=== PATIENT | male | born 1945 | race Two or more races ===

== ENCOUNTER 2016-10-10 08:58 | Day surgery (SDC) | payer OTHER ==
[~2016-10-10] VITALS: Ht 167.6 cm; Wt 80.9 kg
[2016-10-10] VITALS (7 sets, daily range): BP systolic 113–160; BP diastolic 69–95; PULSE 55–64; RESP 16–18; TEMP 97.5; O2SAT 93–97
[2016-10-10 10:05] LABS: AUTOMATED NEUTROPHIL # 2.9 TH/MM3 (1.8-7.7); BASOPHIL % 0.1 % (0.0-2.0); EOSINOPHIL # 0.1 TH/MM3 (0-0.4); EOSINOPHIL % 1.6 % (0.0-4.0); HEMATOCRIT 29.7 % (39.0-51.0); HEMO FLAGS DIFF FINAL; LYMPH % 36.8 % (9.0-44.0); LYMPHOCYTE # 2.2 TH/MM3 (1.0-4.8); MEAN CELL VOLUME 94.1 FL (80.0-100.0); MEAN CORPUSCULAR HEMOGLOBIN 31.1 PG (27.0-34.0); MEAN CORPUSCULAR HGB CONC 33.1 % (32.0-36.0); MONO % 11.9 % (0.0-8.0); NEUT % 49.6 % (16.0-70.0); PLATELET COUNT 258 TH/MM3 (150-450); RED BLOOD COUNT 3.16 MIL/MM3 (4.50-5.90); WHITE BLOOD COUNT 5.9 TH/MM3 (4.0-11.0)
[2016-10-10] MEDS ORDERED: FOSA70TA PO (10:14)
[2016-10-10] MEDS ORDERED: SODIUM CHLOR 0.9% 1000 ML IV SCH (11:00)
[2016-10-10] MEDS ORDERED: LIDOCAINE HCL 1% 20 ML VIAL ONE (11:19)
[2016-10-10] MEDS ORDERED: MIDAZOLAM HCL 2 MG/2 ML VIAL ONE (11:31)
[2016-10-10] MEDS ORDERED: fentaNYL CITRATE 250 MCG/5 ML AMP ONE (11:32)
--- NOTE | 2016-10-10 12:09 | PD.RAD ---
Post CT Procedure Prog Note Pre Procedure Diagnosis: (1) Anemia Post Procedure Diagnosis: (1) Anemia Procedure Date: Oct 10, 2016 Supervising Radiologist: Forest Lyon Anesthesia: Conscious Sedation Plan of Activity Patient to Unit: [facility] Patient Condition: Good Additional Comments: left iliac bm bx See PACS Report for procedural detail/treatment Forest Lyon MD Oct 10, 2016 12:09
--- NOTE | 2016-10-10 12:48 | RADRPT ---
EXAM DATE/TIME: 10/10/2016 11:46 [facility] COMPARISON: No previous studies available for comparison. INDICATIONS : Anemia. SEDATION TIME: 25 minutes BIOPSY SITE: Left MEDICATION(S): 1.) 2 mg midazolam (Versed) IV 2.) 200 mcg fentanyl (Sublimaze) IV DEVICE(S): 1.) 11 gauge Bone marrow biopsy needle MEDICAL HISTORY : Anemia SURGICAL HISTORY : None. ENCOUNTER: Initial ACUITY: 1 day PAIN SCORE: 0/10 LOCATION: Left pelvis A total of one core specimen(s) were obtained and sent to the laboratory for pathologic evaluation. PROCEDURE: 1. CT guided bone marrow biopsy. 2. Conscious sedation with continuous EKG and oximetry monitoring. 3. EKG and oximetry remained stable throughout the procedure. Prior to the procedure informed consent was obtained. Any appropriate prior imaging studies were rev iewed. Using automated exposure control and adjustment of the mA and/or kV according to patient size , radiation dose was kept as low as reasonably achievable to obtain optimal diagnostic quality images . DICOM format image data is available electronically for review and comparison. The site was prepped in a sterile fashion. Full sterile technique was used, including cap, mask, jorge rile gloves and gown and a large sterile sheet. Hand hygiene and 2% chlorhexidine and/or betadine/al cohol prep was utilized per protocol for cutaneous antisepsis. The skin and subcutaneous tissues wer e infiltrated with local anesthetic solution. With CT guidance the previously identified target was localized. Biopsy was performed using the presc ribed needle as above. Following biopsy marrow aspiration was performed with repeat puncture. Adequa te hemostasis was obtained with compression at the puncture site. Follow-up CT scan reveals no hemorrhage. Conscious sedation was performed with the prescribed dosages and duration as above in the presence of an independent trained radiology nurse to assist in the monitoring of the patient. EKG and oximetry remained stable throughout the procedure. The patient tolerated the procedure well and there were no complications. The patient was sent to Radiology Outpatient Unit in stable condition. CONCLUSION: 1. Uncomplicated CT guided bone marrow aspirate. 2. Uncomplicated CT guided bone marrow biopsy. Forest Lyon MD on October 10, 2016 at 12:46 Board Certified Radiologist. This report was verified electronically.
[2016-10-10 13:01] LABS: BONE MARROW PROCESSING COMPLETE; IRON STAIN DONE; JENNER GIEMSA STAIN DONE
[2016-10-10] MEDS ORDERED: ONDANSETRON HCL 4 MG/2 ML VIAL ONE (14:30)
== END 2016-10-10 15:30 | disposition home or self-care (01) ==
LOC: HRAD 08:58 → HRIP 08:59 → HRAD 15:30
PROVIDERS: ATTEND Internal Medicine
DX: D64.9 Anemia, unspecified (principal); D47.2 Monoclonal gammopathy; C90.00 Multiple myeloma not having achieved remission; M85.80 Other specified disorders of bone density and structure, unspecified site
CPT/HCPCS: 38221; 77012; 85025; 85097; 88184; 88185; 88237; 88264; 88280; 88305; 88311; 88313; 99152; 99153; C1830; G0364; J2250; J2405; J3010; J7030; 88368; 88377

== ENCOUNTER 2016-10-25 07:46 | Day surgery (SDC) | payer OTHER ==
[~2016-10-25] VITALS: Ht 167.6 cm; Wt 80.0 kg
[~2016-10-25 07:46] MED LIST: FOSA70TA PO
[2016-10-25 08:01] VITALS: BP 123/80; PULSE 68; RESP 20; TEMP 97.9; O2SAT 97
[2016-10-25 08:28] LABS: AUTOMATED NEUTROPHIL # 2.5 TH/MM3 (1.8-7.7); BASOPHIL % 0.2 % (0.0-2.0); EOSINOPHIL # 0.1 TH/MM3 (0-0.4); EOSINOPHIL % 1.6 % (0.0-4.0); HEMATOCRIT 29.5 % (39.0-51.0); HEMO FLAGS DIFF FINAL; LYMPH % 43.1 % (9.0-44.0); LYMPHOCYTE # 2.4 TH/MM3 (1.0-4.8); MEAN CELL VOLUME 93.6 FL (80.0-100.0); MEAN CORPUSCULAR HEMOGLOBIN 32.1 PG (27.0-34.0); MEAN CORPUSCULAR HGB CONC 34.3 % (32.0-36.0); MONO % 10.4 % (0.0-8.0); NEUT % 44.7 % (16.0-70.0); PLATELET COUNT 297 TH/MM3 (150-450); RED BLOOD COUNT 3.15 MIL/MM3 (4.50-5.90); RED CELL DISTRIBUTION WIDTH 16.6 % (11.6-17.2); WHITE BLOOD COUNT 5.6 TH/MM3 (4.0-11.0)
[2016-10-25] MEDS ORDERED: ceFAZolin 2 GM PREMIX 50 ML - implanted port/tunneled catheter insertion IV SCH (08:30)
[2016-10-25] MEDS ORDERED: POVIDONE IODINE 5% (ANTISEPSIS KIT) 4 APPLICATIONS EACH NARE SCH (08:30)
[2016-10-25] MEDS ORDERED: VANCOMYCIN 1000 MG/NS 250 ML - implanted port/tunneled catheter IV SCH ×2 (08:30)
[2016-10-25] MEDS ORDERED: SODIUM CHLORIDE 0.9% 1000 ML IV SCH (08:30)
[2016-10-25] MEDS ORDERED: CHLORHEXIDINE GLUCONATE 2 % 1 PACK (2 CLOTHS) TOPICAL SCH (08:30)
[2016-10-25 08:37] LABS: APTT (PATIENT) 27.1 SEC (24.3-30.1); INTERNATIONAL NORMALIZED RATIO 1.1 RATIO; PROTHROMBIN TIME - PATIENT 12.1 SEC (9.8-11.6)
[2016-10-25] MEDS ORDERED: MIDAZOLAM HCL 2 MG/2 ML VIAL ONE (09:23)
[2016-10-25] MEDS ORDERED: LIDOCAINE 2%/EPINEPHrine 1:100,000 20ML MDV ONE (09:29)
[2016-10-25 11:00] VITALS: BP 129/71; PULSE 81; RESP 16; TEMP 96; O2SAT 92
[2016-10-25 11:15] VITALS: BP 124/69; PULSE 73; RESP 17; O2SAT 94
--- NOTE | 2016-10-25 11:21 | PD.RAD ---
Post Procedure Progress Note Pre Procedure Diagnosis: (1) Multiple myeloma Post Procedure Diagnosis: (1) Multiple myeloma Procedure Date: Oct 25, 2016 Supervising Radiologist: Vikash Flores Proceduralist/Assist: Thanh Colugna RT(R) Estimated blood loss: 10ml Anesthesia: Local, Conscious Sedation Plan of Activity Patient to Unit: [facility] Patient Condition: Good See PACS Report for procedural detail/treatment Central Venous Access Device Procedure 1 Right Internal Jugular Infusaport Placement single lumen Yi: 8 Vikash Flores MD Oct 25, 2016 11:21
[2016-10-25] MEDS ORDERED: SODIUM CHLORIDE 0.9% FLUSH 10 ML FLUSH IVF PRN (11:30)
[2016-10-25 11:45] VITALS: BP 112/72; PULSE 74; RESP 18; O2SAT 95
[2016-10-25 12:15] VITALS: BP 127/74; PULSE 72; RESP 18; O2SAT 97
--- NOTE | 2016-10-25 14:36 | RADRPT ---
EXAM DATE/TIME: 10/25/2016 09:01 [facility] COMPARISON: No previous studies available for comparison. INDICATIONS : Patient with multiple myeloma. Chemotherapy needed. MEDICAL HISTORY : 1. Anemia 2. multiple myelomia 3. osteoarthritis SURGICAL HISTORY : 1. bone marrow bx ENCOUNTER: Initial ACUITY: 2 months PAIN SCORE: 0/10 FLUORO TIME: 0.4 minutes IMAGE SERIES: 1 SEDATION TIME: 30 minutes ACCESS: Right internal jugular vein SEDATION: 1.) 1.5 mg midazolam (Versed) IV 2.) 75 mcg fentanyl (Sublimaze) IV Prophylactic antibiotics were administered with appropriate pre-procedure timing. Vancomycin within 2 hours of procedure, Ancef (or alternative) within 1 hour of procedure. DEVICE: 1. 8 Russian single lumen Smart port PROCEDURE : 1. Continuous pulse oximetry and EKG monitoring. 2. Intravenous conscious sedation. 3. Ultrasound guidance for venous access. 4. Fluoroscopic guided implantable central venous port placement. The patient was placed supine. The neck was prepped in sterile fashion. Full sterile technique was u sed, including cap, mask, sterile gloves and gown, and a large sterile sheet. Hand hygiene and 2% ch lorhexidine Betadine was utilized per protocol for cutaneous antisepsis with appropriate dry time for site. Sterile gel and sterile probe cover were utilized for ultrasound guidance. The skin and sub cutaneous tissues were infiltrated with local anesthetic solution. Under direct ultrasound guidance, central venous access was accomplished in the targeted vessel. The ultrasound images depicting access guidance were stored and saved to PACS for permanent record. A s ubcutaneous pocket was created using blunt dissection. The port was introduced to the pocket. The c atheter tubing was fed through a subcutaneous tunnel to the venotomy site. The catheter tubing was c ut to a suitable length and then was introduced through a valved Peel-Away sheath and positioned with catheter tubing tip at the cavo-atrial junction level. The pocket incision was closed with subcutic ular Vicryl suture. Steri-Strips were applied. The port was flushed and locked with heparin solutio n per protocol. Sterile dressing was applied to the site. The patient tolerated the procedure well. Conscious sedation was performed with the prescribed dosages and duration as above in the presence of an independent trained radiology nurse to assist in the monitoring of the patient. EKG and oximetry remained stable throughout the procedure. The patient tolerated the procedure well and there were no complications. The patient was sent to post anesthesia recovery in stable condition. CONCLUSION: Uncomplicated ultrasound and fluoroscopic guided implanted central venous port catheter placement as described in detail above. An 8 Russian Power port was placed. Vikash Flores MD on October 25, 2016 at 14:35 Board Certified Radiologist. This report was verified electronically.
== END 2016-10-25 13:10 | disposition home or self-care (01) ==
LOC: HROP 07:46 → HRIP 07:49 → HROP 13:10
PROVIDERS: ATTEND Internal Medicine
DX: C90.00 Multiple myeloma not having achieved remission (principal); D64.9 Anemia, unspecified; M19.90 Unspecified osteoarthritis, unspecified site
CPT/HCPCS: 36561; 76937; 77001; 85025; 85610; 85730; 99152; 99153; C1788; J0690; J1642; J2250; J3010; J3370; J7030; J7050

== ENCOUNTER 2017-03-14 10:09 | Day surgery (SDC) | payer OTHER ==
[2017-03-14] VITALS (7 sets, daily range): BP systolic 91–118; BP diastolic 52–67; PULSE 52–70; RESP 18–20; TEMP 97.5–98; O2SAT 92–99
[~2017-03-14] VITALS: Ht 170.2 cm; Wt 72.3 kg
[2017-03-14] MEDS ORDERED: fentaNYL CITRATE 250 MCG/5 ML AMP ONE (10:21)
[2017-03-14] MEDS ORDERED: MIDAZOLAM HCL 2 MG/2 ML VIAL ONE (10:26)
[2017-03-14] MEDS ORDERED: SODIUM CHLOR 0.9% 1000 ML IV SCH (10:30)
[2017-03-14] MEDS ORDERED: ACYC400T PO (10:36)
[2017-03-14] MEDS ORDERED: TAMS0.4C4 PO (10:36)
[2017-03-14] MEDS ORDERED: ALEV220T14 PO (10:36)
[2017-03-14] MEDS ORDERED: [UNRECOGNIZED DRUG - OTHER] PO (10:36)
[2017-03-14] MEDS ORDERED: POTA-163 PO (10:36)
[2017-03-14] MEDS ORDERED: LENA20CA (10:36)
[2017-03-14] MEDS ORDERED: LIDOCAINE HCL 1% 20 ML VIAL ONE (10:51)
[2017-03-14 11:09] LABS: AUTOMATED NEUTROPHIL # 1.4 TH/MM3 (1.8-7.7); BASOPHIL % 0.3 % (0.0-2.0); EOSINOPHIL # 0.1 TH/MM3 (0-0.4); HEMATOCRIT 30.4 % (39.0-51.0); HEMOGLOBIN 10.6 GM/DL (13.0-17.0); LYMPH % 40.7 % (9.0-44.0); LYMPHOCYTE # 1.3 TH/MM3 (1.0-4.8); MEAN CELL VOLUME 87.8 FL (80.0-100.0); MEAN CORPUSCULAR HEMOGLOBIN 30.7 PG (27.0-34.0); MEAN CORPUSCULAR HGB CONC 34.9 % (32.0-36.0); MEAN PLATELET VOLUME 7.5 FL (7.0-11.0); MONO % 13.7 % (0.0-8.0); MONOCYTE # 0.4 TH/MM3 (0-0.9); NEUT % 41.3 % (16.0-70.0); PLATELET COUNT 232 TH/MM3 (150-450); RED BLOOD COUNT 3.47 MIL/MM3 (4.50-5.90); RED CELL DISTRIBUTION WIDTH 19.6 % (11.6-17.2); WHITE BLOOD COUNT 3.3 TH/MM3 (4.0-11.0)
[2017-03-14 11:19] LABS: INTERNATIONAL NORMALIZED RATIO 1.2 RATIO; PROTHROMBIN TIME - PATIENT 11.8 SEC (9.8-11.6)
--- NOTE | 2017-03-14 12:02 | PD.RAD ---
Post CT Procedure Prog Note Pre Procedure Diagnosis: (1) Multiple myeloma (2) Anemia Post Procedure Diagnosis: (1) Multiple myeloma (2) Anemia Procedure Date: Mar 14, 2017 Supervising Radiologist: Matthew Beatty JR Anesthesia: Conscious Sedation Plan of Activity [facility] Patient Condition: Good See PACS Report for procedural detail/treatment Biopsy Imaging Guidance: CT Side: Left Biopsy Procedure: Bone Marrow Specimen: Core Biopsy, Fine Needle Aspirate Findings: Uncomplicated BM bx and aspiration. Plan 2 hr observation in [facility] Jr. Beatty Thomas Justin MD Mar 14, 2017 12:02
--- NOTE | 2017-03-14 13:05 | RADRPT ---
EXAM DATE/TIME: 03/14/2017 11:41 [facility] COMPARISON: No previous studies available for comparison. INDICATIONS : Multiple myeloma, anemia SEDATION TIME: minutes BIOPSY SITE: MEDICATION(S): 1.) 2 mg midazolam (Versed) IV 2.) 150 mcg fentanyl (Sublimaze) IV DEVICE(S): 1.) 11 gauge Bone marrow biopsy needle MEDICAL HISTORY : Multiple Myeloma, Monoclonal gammopathy SURGICAL HISTORY : None. ENCOUNTER: Initial ACUITY: 1 day PAIN SCORE: 0/10 LOCATION: Left pelvis A total of two core specimen(s) were obtained and sent to the laboratory for pathologic evaluation. PROCEDURE: 1. CT guided bone marrow biopsy. Prior to the procedure informed consent was obtained. Any appropriate prior imaging studies were rev iewed. Using automated exposure control and adjustment of the mA and/or kV according to patient size , radiation dose was kept as low as reasonably achievable to obtain optimal diagnostic quality images . DICOM format image data is available electronically for review and comparison. The site was prepped in a sterile fashion. Full sterile technique was used, including cap, mask, jorge rile gloves and gown and a large sterile sheet. Hand hygiene and 2% chlorhexidine and/or betadine/al cohol prep was utilized per protocol for cutaneous antisepsis. The skin and subcutaneous tissues wer e infiltrated with local anesthetic solution. With CT guidance the left posterior iliac wing was localized. Biopsy was performed using the prescrib ed needle as above. Following biopsy marrow aspiration was performed with repeat puncture. Adequate hemostasis was obtained with compression at the puncture site. Follow-up CT scan reveals no hemorrhage. Conscious sedation was performed with the prescribed dosages and duration as above in the presence of an independent trained radiology nurse to assist in the monitoring of the patient. EKG and oximetry remained stable throughout the procedure. The patient tolerated the procedure well and there were no complications. The patient was sent to Radiology Outpatient Unit in stable condition. CONCLUSION: 1. Uncomplicated CT guided bone marrow aspirate. 2. Uncomplicated CT guided bone marrow biopsy. Matthew Beatty Jr., MD on March 14, 2017 at 13:02 Board Certified Radiologist. This report was verified electronically.
== END 2017-03-14 14:20 | disposition home or self-care (01) ==
LOC: HRAD 10:09 → HRIP 10:10 → HRAD 14:20
PROVIDERS: ATTEND Internal Medicine
DX: C90.00 Multiple myeloma not having achieved remission (principal); D64.9 Anemia, unspecified; D47.2 Monoclonal gammopathy; G89.3 Neoplasm related pain (acute) (chronic); M54.89 Other dorsalgia; R07.81 Pleurodynia
CPT/HCPCS: 38222; 77012; 85025; 85097; 85610; 85730; 88184; 88185; 88237; 88264; 88280; 88305; 88311; 88313; 99152; 99153; C1830; J2250; J3010; J7030

== ENCOUNTER 2017-08-08 08:11 | Day surgery (SDC) | payer OTHER ==
[~2017-08-08] VITALS: Ht 167.6 cm; Wt 73.6 kg
[~2017-08-08 08:11] MED LIST changes: +ACYC400T PO; +ALEV220T14 PO; -FOSA70TA PO; +LENA20CA; +POTA-163 PO; +TAMS0.4C4 PO; +[UNRECOGNIZED DRUG - OTHER] PO
[2017-08-08 08:33] VITALS: BP 135/84; PULSE 55; RESP 18; TEMP 98; O2SAT 97
[2017-08-08 09:12] LABS: AUTOMATED NEUTROPHIL # 1.4 TH/MM3 (1.8-7.7); BASOPHIL % 0.4 % (0.0-2.0); EOSINOPHIL # 0.1 TH/MM3 (0-0.4); EOSINOPHIL % 3.8 % (0.0-4.0); HEMATOCRIT 39.2 % (39.0-51.0); HEMOGLOBIN 13.2 GM/DL (13.0-17.0); LYMPH % 40.4 % (9.0-44.0); LYMPHOCYTE # 1.3 TH/MM3 (1.0-4.8); MEAN CELL VOLUME 96.3 FL (80.0-100.0); MEAN CORPUSCULAR HEMOGLOBIN 32.3 PG (27.0-34.0); MEAN CORPUSCULAR HGB CONC 33.5 % (32.0-36.0); MEAN PLATELET VOLUME 8.5 FL (7.0-11.0); MONOCYTE # 0.4 TH/MM3 (0-0.9); NEUT % 43.4 % (16.0-70.0); PLATELET COUNT 209 TH/MM3 (150-450); RED BLOOD COUNT 4.08 MIL/MM3 (4.50-5.90); RED CELL DISTRIBUTION WIDTH 15.7 % (11.6-17.2); WHITE BLOOD COUNT 3.2 TH/MM3 (4.0-11.0)
[2017-08-08] MEDS ORDERED: SODIUM CHLOR 0.9% 1000 ML IV SCH (09:15)
[2017-08-08] MEDS ORDERED: MIDAZOLAM HCL 2 MG/2 ML VIAL ONE (09:35)
[2017-08-08 10:20] VITALS: BP 126/63; PULSE 52; RESP 16; TEMP 97.6; O2SAT 93
[2017-08-08 10:35] VITALS: BP 121/69; RESP 18; O2SAT 92
[2017-08-08 11:05] VITALS: BP 126/63; PULSE 51; RESP 16; O2SAT 93
[2017-08-08 11:35] VITALS: BP 126/77; PULSE 61; RESP 16; O2SAT 94
[2017-08-08 12:05] VITALS: BP 117/55; PULSE 60; RESP 16; O2SAT 96
--- NOTE | 2017-08-08 12:33 | RADRPT ---
EXAM DATE: 08/08/2017 10:18 AM EDT AGE/SEX: 72 years / Male INDICATIONS: Monoclonal gammopathy, multiple myeloma. CLINICAL DATA: This is the patient's initial encounter. Patient reports that signs and symptoms have been present for 1 day and indicates a pain score of 0/10. MEDICAL/SURGICAL HISTORY: . Multiple myeloma. None. COMPARISON: [facility] [place], CT NEEDLE BIOPSY BONE MARROW, 03/14/2017. . BIOPSY SITE: Right bone marrow MEDICATION(S): 2mg midazolam (Versed) IV 150mcg fentanyl (Sublimaze) IV DEVICE(S): 11 gauge Bone marrow biopsy needle One core specimen(s) sent to the laboratory for pathologic evaluation. . . PROCEDURE: CT guided Right bone marrow biopsy Prior to the procedure informed consent was obtained. Any appropriate prior imaging studies were rev iewed. Using automated exposure control and adjustment of the mA and/or kV according to patient size , radiation dose was kept as low as reasonably achievable to obtain optimal diagnostic quality images . DICOM format image data is available electronically for review and comparison. The site was prepped in a sterile fashion. Full sterile technique was used, including cap, mask, jorge rile gloves and gown and a large sterile sheet. Hand hygiene and 2% chlorhexidine and/or betadine/al cohol prep was utilized per protocol for cutaneous antisepsis. The skin and subcutaneous tissues wer e infiltrated with local anesthetic solution. With CT guidance the previously identified target was localized. Biopsy was performed using the presc ribed needle as above. Following biopsy marrow aspiration was performed with repeat puncture. Adequa te hemostasis was obtained with compression at the puncture site. Follow-up CT scan reveals no hemorrhage. Conscious sedation was performed with the prescribed dosages and duration as above in the presence of an independent trained radiology nurse to assist in the monitoring of the patient. EKG and oximetry remained stable throughout the procedure. The patient tolerated the procedure well and there were no complications. The patient was sent to Radiology Outpatient Unit in stable condition. CONCLUSION: 1. Uncomplicated CT guided bone marrow aspirate. 2. Uncomplicated CT guided bone marrow biopsy. Electronically signed by: Shakeel Fox MD 08/08/2017 12:31 PM EDT
== END 2017-08-08 12:20 | disposition home or self-care (01) ==
LOC: HRAD 08:11 → HRIP 08:12 → HRAD 12:20
PROVIDERS: ATTEND Internal Medicine
DX: C90.00 Multiple myeloma not having achieved remission (principal)
CPT/HCPCS: 38222; 77012; 85025; 85097; 88184; 88185; 88237; 88264; 88280; 88305; 88311; 88313; C1830; J2250; J3010; J7030